=== PATIENT | female | born 1980 | race Hispanic/Latino ===

== ENCOUNTER → 2022-05-18 07:30 | Outpatient (CLI) | payer OTHER, SELFPAY ==
[2022-05-18 09:12] LABS: Glucose Fasting Gestational 82 mg/dL (76-95)
[2022-05-18 09:19] LABS: Glucose 1 Hour Gest 202 mg/dL (76-180)
[2022-05-18 11:00] LABS: Glucose Tol Interp,Gestational INTERPRETATION
[2022-05-18 11:12] LABS: Glucose 2 Hour Gest 124 mg/dL (76-155)
[2022-05-18 12:08] LABS: Glucose 3 Hour Gest 74 mg/dL (76-140)
== END ==
PROVIDERS: Referring Provider Nurse Practitioner Obstetrics & Gynecology; Visit Provider Nurse Practitioner Obstetrics & Gynecology
DX: Z34.90 Encounter for supervision of normal pregnancy, unspecified, unspecified trimester (principal); Z3A.26 26 weeks gestation of pregnancy
CPT/HCPCS: 36415; 82951; 82952

== ENCOUNTER 2022-07-28 11:06 | Outpatient (CLI) | payer OTHER, SELFPAY ==
[2022-07-28 12:24] LABS: Add Manual Diff / Slide Review NO; Basophils Absolute Auto 100 /uL (0-100); Basophils Percent Auto 1.2 % (0-2); Eosinophils Absolute Auto 100 /uL (0-450); Eosinophils Percent Auto 1.8 % (2-4); Hematocrit 33.2 % (36-46); Hemoglobin 11.5 g/dL (12.0-16.0); Lymphocytes Absolute Auto 1800 /uL (1100-4500); Lymphocytes Percent Auto 24.2 % (25-40); Mean Corpuscular HGB Conc 34.7 % (30-36); Mean Corpuscular Hemoglobin 31.6 PG (26-34); Mean Corpuscular Volume 91.1 fL (80-100); Monocytes Absolute Auto 500 /uL (0-900); Monocytes Percent Auto 6.5 % (3-14); Neutrophils Absolute Auto 4900 /uL (1500-7000); Neutrophils Percent Auto 66.3 % (50-75); Platelet Count 294 X10^3/uL (150-400); Red Blood Cell Count 3.65 X10^6/uL (4.0-5.2); Red Cell Distribution Width 13.4 % (11.6-14.8); White Blood Cell Count 7.5 X10^3/uL (4.5-11.0)
--- NOTE | 2022-07-28 12:42 | P.TNLD_ITS ---
Visit Information Visit Information Date of evaluation: 07/28/22 Primary OB Provider: May Mcdonald On-call OB Provider: May Mcdonald Reason for Evaluation: Yes other Comments/Additional reasons for admission: Fetus in variable position (transverse in clinic, breech now). Consultation with Dr. Noel for ECV including r/b/a of doing it now or waiting for either baby to turn, labor, or [address] Noel does not recommend IOL at this time due to EGA under 39w0d. Vital Signs Vital Signs: BP 115/73 HR 86 T 36.9 PFSH Medical History (Updated 07/28/22 @ 12:59 by Merissa Mccall, CNM, TRAINING DEVELOPMENT SPECIALIST) Supervision of high risk in third trimester Review of Systems Review of Systems Narrative: Negative. Exam Presentation: full/complete breech Objective Labs 07/28/22 12:10 Labs: Laboratory Results - last 24 hr 07/28/22 12:10 WBC 7.5 RBC 3.65 L Hgb 11.5 L Hct 33.2 L MCV 91.1 MCH 31.6 MCHC 34.7 RDW 13.4 Plt Count 294 Neut % (Auto) 66.3 Lymph % (Auto) 24.2 L [facility] % (Auto) 6.5 Eos % (Auto) 1.8 L Baso % (Auto) 1.2 Neut # (Auto) 4900 Lymph # (Auto) 1800 [facility] # (Auto) 500 Eos # (Auto) 100 Baso # (Auto) 100 Evaluation Evaluation Baseline heart rate: 135 Variability: Moderate (11-25) monitor accelerations: Present Monitor Decelerations: Absent Category of Tracing: Reactive Comments: irregular and painless contractions Diagnosis, Plan/Disposition Final Diagnosis (1) Supervision of high risk in third trimester: Status: Inactive Problem details: AMA - age 42 (2) Uncertain presentation of fetus: Status: Acute Problem details: position variable Plan/Disposition Plan: Consult with Dr. Noel. Laurence opts to NOT do ECV today. Offered IOL at 39w0d; Laurence declines at this time, will consider and keep IOL for 39w5d on 08/07/22 as scheduled. Review warning signs for labor and when to come in for exam. RTC Wednesday for PNV, JOSEPHINE, NST.
== END 2022-07-28 12:50 | disposition home or self-care (01) ==
LOC: LABOR 11:19 → OB 07-31 15:22
PROVIDERS: Referring Provider Nurse Practitioner Obstetrics & Gynecology; Visit Provider Nurse Practitioner Obstetrics & Gynecology
DX: O32.1XX0 Maternal care for breech presentation, not applicable or unspecified (principal); O09.523 Supervision of elderly multigravida, third trimester; Z3A.38 38 weeks gestation of pregnancy
CPT/HCPCS: 36415; 59025; 85025; 86850; 86900; 86901; G0378; G0379

== ENCOUNTER 2022-08-04 12:08 | Inpatient (IN) | payer OTHER, SELFPAY ==
[2022-08-04 12:45] VITALS: BP 114/72
--- NOTE | 2022-08-04 12:56 | PM.OBHP.1 ---
OB HPI Date/Time Date of admission: 08/04/22 Date Patient Seen: 08/04/22 Time Patient Seen: 12:30 History of Present Condition Chief complaint: Induction : 6 Para: 5 Estimated Date of Delivery: 08/09/22 Estimated Gestational Age (weeks): 39w2d Narrative: Laurence Parkinson is a 42 year old female at 39w2d by sure LMP 11/02/21 an concordant with 8 week US, here for IOL for AMA. Laurence was in clinic this morning for routine testing with non-reactive NST, JOSEPHINE WNL, baby was vertex on US. Has been struggling with unstable lie and is agreeable to induction today, rather than 08/07/22 which was previous request. On metformin 500mg PO BID prior to for pre-diabetes and has continued throughout with no change in dosing. Desires low intervention . FOB and her parents supportive and at bedside. Uncomplicated care and routine testing with CNMs. Diagnosed with UTI last week, Cephalexin prescribed and symptoms have subsided. Indications Indication for induction OB: other (AMA) History of Present care: good care, initiated at week # (8), number of visits (15) and pounds weight gain (29.4) Dating criteria: LMP confirmed by 1st trimester US Ultrasounds: normal 1st trimester US, normal mid trimester US and other (Baby unstable lie, multiple US to check positioning) Abnormal ultrasound findings: Breech position at 36w, transverse at 38w Preadmission Labs Blood type: O (+) positive -: Antibody screen: negative, Cystic fibrosis screen: negative, GBS status: negative, HBsAG: negative, HIV: negative and RPR/VDLR: negative -: Chlamydia screen: not detected and Gonorrhea screen: not detected -: Rubella: immune and Varicella: immune HCT: 33.8 PAP: Normal Cell-free DNA: Negative Urine: Escherichia coli detected on 08/02/22 3 hr GTT: 3 hr (82/202/124/74) Prior (ies) History: NSVB x5, no complications Evaluation Evaluation Baseline heart rate: 165 Variability: Moderate (11-25) monitor accelerations: Present Monitor Decelerations: Absent Uterine Contraction Intensity: Mild Category of Tracing: Reactive Status: Category ll Dilation (cm): 3 Effacement (%): 50 Dilation: 3-4 cm Effacement: 40-50% station: -2 Position of cervix: posterior Consistency: medium White score: 5 PFSH Medical History Supervision of high risk in third trimester Thyroid dysfunction, Social History marital status: unmarried,single household members: children lives independently: Yes housing: house occupational status: employed current occupational exposures/hazards: No Smoking Status: Former smoker Meds Home Medications and Allergies Home Medications Medication Instructions Recorded Confirmed Type cephalexin 500 mg capsule mg 08/04/22 History metformin 500 mg tablet mg 08/04/22 08/04/22 History Review of Systems Review of Systems ROS: Yes All systems reviewed with the patient and are negative except as otherwise documented Constitutional Constitutional: Reports as per HPI OB Exam Vital signs Blood Pressure: 114/72 Pulse Rate: 98 Temperature: 98.1 F Resp Effort & Inspection: normal respiratory effort and able to speak in complete sentences Auscultation: clear to auscultation bilaterally Cardio Rate: regular rate Rhythm: regular rhythm Presentation: vertex Objective Labs 08/04/22 12:45 Assessment and Plan Assessment and Plan Assessment and Plan narrative: A: Term Grandmultipara IOL for AMA Mild anemia No indication for GBS prophylaxis Recent UTI- on antibiotics Hx of thyroid failure Cat II FHR for tachycardia P: Admit, routine orders with thyroid labs added. Informed consent obtained for IOL for AMA. 250mL IV fluid bolus, then begin pitocin per protocol. Continuous EFM. Continue cephalexin PO, as previously prescribed. Active management of the third stage of labor. Reassess once regular contraction pattern is established.
[2022-08-04 13:24] VITALS: BP 114/72; PULSE 98; TEMP 36.7
[2022-08-04 13:26] LABS: Add Manual Diff / Slide Review NO; Basophils Absolute Auto 100 /uL (0-100); Basophils Percent Auto 0.9 % (0-2); Eosinophils Absolute Auto 200 /uL (0-450); Eosinophils Percent Auto 2.4 % (2-4); Hemoglobin 11.3 g/dL (12.0-16.0); Lymphocytes Absolute Auto 1800 /uL (1100-4500); Lymphocytes Percent Auto 28.8 % (25-40); Mean Corpuscular HGB Conc 34.2 % (30-36); Mean Corpuscular Hemoglobin 31.2 PG (26-34); Mean Corpuscular Volume 91.2 fL (80-100); Monocytes Absolute Auto 400 /uL (0-900); Monocytes Percent Auto 5.9 % (3-14); Neutrophils Absolute Auto 3800 /uL (1500-7000); Platelet Count 258 X10^3/uL (150-400); Red Blood Cell Count 3.62 X10^6/uL (4.0-5.2); Red Cell Distribution Width 13.7 % (11.6-14.8); White Blood Cell Count 6.2 X10^3/uL (4.5-11.0)
[2022-08-04] MEDS: OXYTOCIN PREMIX 30 UNIT/500 ML PLAST..BAG IV (13:32)
[2022-08-04 14:01] LABS: Free T4, Direct Thyroxine 0.76 ng/dL (0.78-2.19)
[2022-08-04 14:14] LABS: Thyroid Stimulating Hormone 2.27 uIU/mL (0.47-4.68)
--- NOTE | 2022-08-04 16:16 | PM.OBPNLAB ---
Date/Time Date Patient Seen: 08/04/22 Time Patient Seen: 16:10 Pain Control Pain control: tolerating well Comments: Now closing her eyes and breathing through regular contractions. Agreeable to AROM. Lots of family present and supportive. VS: BP 133/80, HR 90bpm, T 36.6C Temporal Pelvic Exam Dilation (cm): 5 Effacement (%): 60 station: -3 Amniotic membrane status: Bulging Comments: AROM with FSE. FSE applied to membranes and NOT scalp, then removed. Scant clear fluid noted. Contractions Monitor mode: External Pitocin rate (mU/min): 8 Contraction frequency (min): 3 Contraction duration (min): 1 Contraction pattern: Regular Contraction intensity: Mild Status status: Category ll (overall reassuring) Heart Rate Baseline: 135 Monitor Accelerations: Present Monitor Decelerations: Variable Monitor Variability: Moderate Assessment and Plan Assessment: induction ongoing Plan: continuous present management Comments: Consulted [facility] OB/ prior to needle AROM and she was in agreement with plan of care. Upright positioning for the next 30 minutes. Monitor for continued leaking of fluid. Labor support, PRN. Continue pitocin titration to adequate contraction pattern. Labor support PRN. Reassess in 2 hours or sooner, PRN.
[2022-08-04] MEDS: CEPHALEXIN 500 MG 1 EACH PO (17:05)
--- NOTE | 2022-08-04 23:06 | P.PCNOB_ITS ---
Events: Labor Induction and Other (Advanced Maternal Age) Labor & Delivery Delivery date: 08/04/22 Intrapartal Events: Abnormal Presentation ( & acynclitic) Cervical ripening method: none Induction method: per pitocin protocol Delivery monitor: external FHT Route of delivery: L&D Laceration Description: None Quantitative Blood Loss: 150 Anesthesia Type: Other (NO2) Narrative: Laurence is a 42yr old G6 now P6 s/p NSVB at 39w2d by sure LMP and concordant 8wk US. Pitocin induction for IOL d/t AMA and non-reactive NST in office this morning. AROM with clear fluid. Contractions managed well with comfort measures, position changes, lots of support from family, and NO2. She felt like bearing down, SVE 8/80/0, with edema anterior and right. FHR Cat II, first with recurrent variables, and later deep recurrent decelerations that were unrelieved by positions changes. Encouraged to push due to non-reassuring HR. Another SVE found cervical swelling so Laurence was coached to stop pushing and encouraged to get out of bed and stand and sway with the support of FOB, father, and brother. She returned to lithotomy, CNM was able to reduce anterior lip. Third push resulted in delivery of entire head and body of vigorous baby girl, SAIDA, no nuchal cord over intact perineum. Terminal meconium noted. Placed on maternal abdomen by her father. Cord clamped after pulsations stopped, cut by FOB. Pitocin given per protocol for hemorrhage prophylaxis. Baby girl voided while on maternal abdomen. Placenta delivered within 10min, Schultze, 3V, intact per inspection. Fundus firm @ U. QBL 150mL. Stable and skin to skin as we were leaving room. Entire family so excited to meet baby Cortney. weight not available at the time of this note. [place] Baby 1: Infant gender: Female Presentation: vertex Position: Left Occiput Anterior Placenta delivery description: Spontaneous and Normal Configuration Cord Vessel Description: 3 Vessels score (1 min): 8 score (5 min): 9 Plan for aftercare: Routine care
[2022-08-04] MEDS: KETOROLAC 30 MG/ML VIAL IV (23:47)
--- NOTE | 2022-08-05 00:17 | PM.NBHP.1 ---
History History Time of : 22:22 Gestation: term Multiple fetuses: No Mode of delivery: vaginal score (1 min): 8 score (5 min): 9 Nursery Course Maternal RH factor: positive Exam - Pediatric Vital Signs Vital Signs: Vital Signs BP 114/72 08/04/22 12:45 Objective Labs 08/04/22 12:45 Labs: Laboratory Results - last 24 hr 08/04/22 08/04/22 08/04/22 12:45 12:45 12:45 WBC 6.2 RBC 3.62 L Hgb 11.3 L Hct 33.0 L MCV 91.2 MCH 31.2 MCHC 34.2 RDW 13.7 Plt Count 258 Neut % (Auto) 62.0 Lymph % (Auto) 28.8 [facility] % (Auto) 5.9 Eos % (Auto) 2.4 Baso % (Auto) 0.9 Neut # (Auto) 3800 Lymph # (Auto) 1800 [facility] # (Auto) 400 Eos # (Auto) 200 Baso # (Auto) 100 TSH 2.27 Free T4 0.76 L Blood Type O Positive Antibody Screen Negative Sarnat Scoring Scale Citation Madeline HB, Shakir L, Damon C, Marjorie LM, Praful C, Kateryna K. Sarnat grading scale for encephalopathy after 45 years: an update proposal. Pediatr Neurol. 2020;113:75?9.
[2022-08-05] MEDS: ACETAMINOPHEN 325 MG TABLET 975 MG PO ×3 (01:34→17:42)
[2022-08-05] MEDS: CEPHALEXIN 500 MG 1 EACH PO (01:35)
[2022-08-05] MEDS: IBUPROFEN 600 MG TABLET PO ×2 (06:51→13:18)
[2022-08-05] MEDS: cephALEXin 250 MG CAPSULE 500 MG PO ×2 (09:36→15:29)
--- NOTE | 2022-08-05 12:30 | P.DS_ITS ---
Discharge Providers Provider Date of admission: 08/04/22 12:08 Discharge Date: 08/05/22 Consults: 08/05/22 22:55 Consult to Workers Compensation Claims Adjuster Routine Comment: Discharge provider: Merissa Mccall CNM, ARNP Summary Hospital Course Date Patient Seen: 08/05/22 Time Patient Seen: 11:15 Diagnoses: Z3A.39, o09.529, o09.40, o8o, o99.214 NSVB AMA Hospital Course: Laurence is a 42 year old who had an IOL/NSVB yesterday at 39w2d for AMA and NRNST. QBL 150 mL. Intact perineum. Normal course. Pain managed with ibuprofen and acetaminophen. Has voided normally and passed gas. She is well hydrated and eating normally. with no concerns. Normal mood, but feeling very tired. Well supported by Didier PALMER. Peripartum Data Infant Delivery Method: Natural Vaginal Laceration Description: None Procedures: NSVB 1: Gender: Female Disposition of : home Discharge Diagnosis (1) (normal spontaneous vaginal delivery): Start Date: 08/04/22 Start Time: 22:22 Status: Acute Problem Details: no complications, normal blood loss, intact perineum (2) Encounter for care and examination of lactating mother: Start Date: 08/04/22 Start Time: 22:22 Status: Acute Problem Details: going well Status at Discharge Cognitive/behavioral status at discharge: at baseline, oriented Functional status at discharge: independent ambulation Overall status at discharge: patient is progressing back to baseline Time Spent with Patient Time attestation: Total time spent providing and/or coordinating discharge services: 45 Specific discharge activities: Reviewed normal mood, bleeding, recovery, pain and warning signs, when to call ROGELIO. Objective Labs 08/04/22 12:45 Labs: Laboratory Results - last 24 hr 08/04/22 08/04/22 08/04/22 12:45 12:45 12:45 WBC 6.2 RBC 3.62 L Hgb 11.3 L Hct 33.0 L MCV 91.2 MCH 31.2 MCHC 34.2 RDW 13.7 Plt Count 258 Neut % (Auto) 62.0 Lymph % (Auto) 28.8 Power % (Auto) 5.9 Eos % (Auto) 2.4 Baso % (Auto) 0.9 Neut # (Auto) 3800 Lymph # (Auto) 1800 Power # (Auto) 400 Eos # (Auto) 200 Baso # (Auto) 100 TSH 2.27 Free T4 0.76 L Blood Type O Positive Antibody Screen Negative Exam Vital Signs (past 8 hours): BP 108/57 HR 83 bpm RR 13/min Temp: 98.4 Const General: healthy appearing, comfortable and other (sore) Other: Fundus Firm U-2 Skin General: no rashes or lesions noted Neuro General: patient oriented x3 Extrem General: normal to inspection, full ROM and capillary refill normal Psych Appearance: grossly normal Discharge Plan Discharge Plan Patient Disposition: Home Provider Discharge Comment: Home with baby; has good support from FOB and family. Discharge orders & Medications Prescriptions: Continued cephalexin 500 mg capsule metformin 500 mg tablet Patient Comments: take 1 tablet by mouth three times a day Follow up/Referrals: Merissa Mccall, ROGELIO, PILOT FUEL ENGINEER [Advanced Respiratory Coordinator] - Diet/Activity/Treatments Diet: Regular Activity: Low diaz x 2 weeks Skin/Wound/Dressing Care Report to your healthcare provider any signs of infection, such as:: chills, fever, increased pain, unusual drainage and unusual redness Visit Report/Discharge Packet Stand Alone Forms: Patient Portal/API, Stroke Signs & Symptoms
[2022-08-05 16:52] VITALS: BP 115/69; PULSE 71; RESP 16; TEMP 36.8
== END 2022-08-05 18:33 | disposition home or self-care (01) | DRG 806 ==
PROVIDERS: Admitting Provider Nurse Practitioner Obstetrics & Gynecology; Referring Provider Nurse Practitioner Obstetrics & Gynecology; Visit Provider Nurse Practitioner Obstetrics & Gynecology
DX: O75.3 Other infection during labor (principal); N39.0 Urinary tract infection, site not specified; Z37.0 Single live birth; B96.89 Other specified bacterial agents as the cause of diseases classified elsewhere; Z3A.39 39 weeks gestation of pregnancy; O99.892 Other specified diseases and conditions complicating childbirth; R73.03 Prediabetes; O76 Abnormality in fetal heart rate and rhythm complicating labor and delivery; O99.02 Anemia complicating childbirth; D64.9 Anemia, unspecified; Z79.84 Long term (current) use of oral hypoglycemic drugs
CPT/HCPCS: 36415; 59050; 76815; 84439; 84443; 85025; 86850; 86900; 86901; G0379; J1885; J2590

== ENCOUNTER → 2022-08-18 09:55 | Outpatient (CLI) | payer OTHER, SELFPAY ==
[2022-08-18 10:55] LABS: Free T4, Direct Thyroxine 0.92 ng/dL (0.78-2.19)
[2022-08-18 11:08] LABS: Thyroid Stimulating Hormone 1.27 uIU/mL (0.47-4.68)
== END ==
PROVIDERS: Referring Provider Nurse Practitioner Obstetrics & Gynecology; Visit Provider Nurse Practitioner Obstetrics & Gynecology
DX: E03.9 Hypothyroidism, unspecified (principal)
CPT/HCPCS: 36415; 84439; 84443

== ENCOUNTER → 2023-02-26 11:18 | Outpatient (CLI) | payer OTHER, SELFPAY ==
--- NOTE | 2023-02-26 | DI.US.S_ITS ---
PROCEDURE: US OB <= 14 WEEKS FETUS INDICATIONS: SIZE AND DATE OUTSIDE/PRIOR DATING DATA: Last menstrual period (LMP): Mm. LMP-based estimated date of delivery (CHRIS): Unknown. First dating scan (date and location): 02/26/2023 Estimated date of delivery (CHRIS) from first dating scan: 09/30/2023. The calculations are made using the ultrasound CHRIS of 09/30/2023. TECHNIQUE: Real-time scanning was performed of the fetus and maternal pelvic organs, with image documentation. Endovaginal scanning was also performed to better visualize the fetus and maternal ovaries. COMPARISON: None. FINDINGS: Embryo: pole with crown-rump length of 2.5 centimeters, consistent with 9 weeks and 1 day. Yolk sac is present. Heart rate: 175 Subchronic hemorrhage measuring 0.7 x 0.5 x 0.4 centimeters. Maternal organs: Ovaries are within normal limits. Right ovarian corpus luteal cyst is present. IMPRESSION: 1. Single live intrauterine consistent with 9 weeks and 1 day. 2. Small subchorionic hemorrhage measuring up to 7 millimeters. We strive to produce accurate, complete, and clear reports of imaging services. To assist us in improving patient care, this report was composed using standard report templates and voice recognition software. Therefore, it may contain abnormal punctuation, insertions and/or omissions. Occasional wrong-word or sound-alike substitutions may occur. Though we review the report and make efforts to correct it, we do recommend that the report be read carefully in proper context to recognize any text inaccuracies. Dictated by: Dwayne White M.D. on 02/26/2023 at 11:54 Approved by: Dwayne White M.D. on 02/26/2023 at 11:57
== END ==
PROVIDERS: Referring Provider Advanced Practice Midwife; Visit Provider Advanced Practice Midwife
DX: O09.41 Supervision of pregnancy with grand multiparity, first trimester (principal)
CPT/HCPCS: 76801; 76817

== ENCOUNTER → 2023-05-20 15:42 | Outpatient (CLI) | payer OTHER, SELFPAY ==
--- NOTE | 2023-05-20 | DI.US.S_ITS ---
PROCEDURE: US OB >= 14 WEEKS FETUS INDICATIONS: ANATOMY SCAN OUTSIDE/PRIOR DATING DATA: Last menstrual period (LMP): Unknown. LMP-based estimated date of delivery (CHRIS): Not available. First dating scan (date and location): February 26, 2023. Estimated date of delivery (CHRIS) from first dating scan: September 30, 2023. TECHNIQUE: Real-time scanning was performed of the fetus, with image documentation and biometric measurements. Endovaginal scanning: Not performed COMPARISON: None. FINDINGS: General: A single living intrauterine gestation is present. Presentation: Variable. Placenta: Placental position is posterior , without previa. Amniotic fluid index: 16.6 cm, normal range is 5-24 cm. Single deepest vertical pocket is 5.5 cm. heart rate: 153 beats per minute. Maternal cervical canal: 4.4 cm long. Normal lower limit is 2.5 cm. biometrics: Biparietal diameter: 4.8 cm, 20 weeks, 3 days Head circumference: 17.8 cm, 20 weeks, 2 days Abdominal circumference: 16.2 cm, 21 weeks, 2 days Femur length: 3.5 cm, 21 weeks, 1 day Clinically estimated gestational age: 21 weeks, 0 days Composite gestational age from present scan: 20 weeks, 6 days Estimated weight and percentile: 398 g, 49% Anatomic survey: Neuro: Ventricles are non-dilated at less than 10 mm. Cisterna magna is normal at 3-11 mm. Cerebellum is normal in size and morphology. Nuchal skin fold: Normal at less than 6 mm between 14-21 weeks gestational age. Face: Nose and lips, facial profile are normal. Spine: No evidence for spina bifida. Heart: 4-chambered heart is present, with normal ventricular outflow tracts. Diaphragm: Diaphragm is intact. Stomach: Left-sided stomach is present. Kidneys: No hydronephrosis. Normal is less than 5 mm in 2nd trimester, less than 7 mm in 3rd trimester. Cord: 3-vessel cord has orthotopic insertion. Bladder: Normal in size. Extremities: All 4 extremities identified. IMPRESSION: 1. Single live intrauterine gestation with a gestational age of 20 weeks, 6 days by the current scan which is concordant with dates by initial study. 2. No sonographic anatomic abnormalities. We strive to produce accurate, complete, and clear reports of imaging services. To assist us in improving patient care, this report was composed using standard report templates and voice recognition software. Therefore, it may contain abnormal punctuation, insertions and/or omissions. Occasional wrong-word or sound-alike substitutions may occur. Though we review the report and make efforts to correct it, we do recommend that the report be read carefully in proper context to recognize any text inaccuracies. Dictated by: Jo-Ann Lewis M.D. on 05/21/2023 at 9:08 Approved by: Jo-Ann Lewis M.D. on 05/21/2023 at 9:11
== END ==
LOC: US 15:43
PROVIDERS: Referring Provider Advanced Practice Midwife; Visit Provider Advanced Practice Midwife
DX: Z3A.20 20 weeks gestation of pregnancy; Z34.82 Encounter for supervision of other normal pregnancy, second trimester
CPT/HCPCS: 76811

== ENCOUNTER → 2023-07-07 22:38 | Outpatient (ROUT) | payer OTHER, SELFPAY ==
[2023-07-07 23:38] LABS: Add Manual Diff / Slide Review NO; Basophils Absolute Auto 100 /uL (0-100); Basophils Percent Auto 0.9 % (0-2); Eosinophils Absolute Auto 300 /uL (0-450); Eosinophils Percent Auto 3.6 % (2-4); Hematocrit 33.4 % (36-46); Hemoglobin 11.1 g/dL (12.0-16.0); Lymphocytes Absolute Auto 1700 /uL (1100-4500); Lymphocytes Percent Auto 21.5 % (25-40); Mean Corpuscular HGB Conc 33.2 % (30-36); Mean Corpuscular Hemoglobin 31.8 PG (26-34); Mean Corpuscular Volume 95.8 fL (80-100); Monocytes Absolute Auto 200 /uL (0-900); Monocytes Percent Auto 2.9 % (3-14); Neutrophils Absolute Auto 5700 /uL (1500-7000); Neutrophils Percent Auto 71.1 % (50-75); Platelet Count 347 X10^3/uL (150-400); Red Blood Cell Count 3.49 X10^6/uL (4.0-5.2); Red Cell Distribution Width 14.9 % (11.6-14.8)
[2023-07-08 00:44] LABS: Free T4, Direct Thyroxine 1.03 ng/dL (0.78-2.19)
== END ==
PROVIDERS: Visit Provider Advanced Practice Midwife
DX: O99.019 Anemia complicating pregnancy, unspecified trimester (principal); E03.9 Hypothyroidism, unspecified
CPT/HCPCS: 84439; 84443; 85025

== ENCOUNTER → 2023-08-26 16:44 | Outpatient (CLI) | payer OTHER, SELFPAY ==
--- NOTE | 2023-08-26 16:45 | DI.US.S_ITS ---
PROCEDURE: US OB LIMITED INDICATIONS: GROWTH OUTSIDE/PRIOR DATING DATA: Last menstrual period (LMP): Unknown LMP-based estimated date of delivery (CHRIS): N/A First dating scan (date and location): 02/26/2023 Estimated date of delivery (CHRIS) from first dating scan: 09/30/2023 The calculations are made using the ultrasound CHRIS of 09/30/2023 TECHNIQUE: Real-time scanning was performed of the fetus, with image documentation and biometric measurements. Endovaginal scanning: Not performed. COMPARISON: [facility], , OB >= 14 WEEKS FETUS, 05/20/2023, 15:58. FINDINGS: General: A single living intrauterine gestation is present. Presentation: Breech Placenta: Placental position is posterior, without previa. Amniotic fluid index: 29 cm, normal range is 5-24 cm. Single deepest vertical pocket is 9.3 cm. heart rate: 152 beats per minute. Maternal cervical canal: 3.5 cm long. Normal lower limit is 2.5 cm. biometrics: Biparietal diameter: 8.6 cm, 34 weeks 4 days Head circumference: 32.9 cm, 37 weeks 2 days Abdominal circumference: 33.9 cm, 37 weeks 6 days Femur length: 6.9 cm, 35 weeks 1 day Clinically estimated gestational age: 35 weeks 0 days Composite gestational age from present scan: 36 weeks 2 days Estimated weight and percentile: 3026 g, 90th percentile Other: Not applicable. IMPRESSION: 1. Single live intrauterine . 2. Estimated weight is at the 90th percentile for gestational age. Abdominal circumference is at the 99th percentile. 3. Amniotic fluid index is elevated at 29 cm. Recommend correlation for developing polyhydramnios. Approved by: Dillan Wahl M.D. on 08/27/2023 at 11:17
== END ==
PROVIDERS: Referring Provider Advanced Practice Midwife; Visit Provider Advanced Practice Midwife
DX: O09.523 Supervision of elderly multigravida, third trimester (principal); O09.43 Supervision of pregnancy with grand multiparity, third trimester; Z3A.36 36 weeks gestation of pregnancy
CPT/HCPCS: 76815

== ENCOUNTER → 2023-09-09 06:40 | Outpatient (CLI) | payer OTHER, SELFPAY ==
--- NOTE | 2023-09-09 06:42 | DI.US.S_ITS ---
PROCEDURE: US OB BIOPHYSICAL PROFILE INDICATIONS: POLYHYDRAMNIOS OUTSIDE/PRIOR DATING DATA: Last menstrual period (LMP): Unknown. LMP-based estimated date of delivery (CHRIS): Unknown First dating scan (date and location): 02/26/2023. Estimated date of delivery (CHRIS) from first dating scan: 09/30/2023. The calculations are made using the ultrasound CHRIS of 09/30/2023. TECHNIQUE: Real-time scanning was performed of the fetus, with image documentation and biometric measurements. Biophysical profile was also obtained. COMPARISON: [facility], , OB LIMITED, 08/26/2023, 17:01. FINDINGS: General: A single living intrauterine gestation is present. Presentation: Breech. Placenta: Placental position is posterior , without previa. Amniotic fluid index: 31.2 cm, normal range is 5-24 cm. Single deepest vertical pocket is 10.4 cm. heart rate: 127 beats per minute. Maternal cervical canal: Not assessed. biometrics: Clinically estimated gestational age: 37 weeks 0 days Biophysical profile: Tone: 2 points. Movement: 2 points. Respiration: 2 points. Largest pocket of fluid: 2 points. IMPRESSION: Single live intrauterine with gestational age of 37 weeks 0 days. JOSEPHINE measures 31.2 cm consistent with polyhydramnios. Close interval follow-up is recommended. We strive to produce accurate, complete, and clear reports of imaging services. To assist us in improving patient care, this report was composed using standard report templates and voice recognition software. Therefore, it may contain abnormal punctuation, insertions and/or omissions. Occasional wrong-word or sound-alike substitutions may occur. Though we review the report and make efforts to correct it, we do recommend that the report be read carefully in proper context to recognize any text inaccuracies. Dictated by: Halle Rodriguez M.D. on 09/09/2023 at 12:05 Approved by: Halle Rodriguez M.D. on 09/09/2023 at 12:06
== END ==
PROVIDERS: Referring Provider Advanced Practice Midwife; Visit Provider Advanced Practice Midwife
DX: O40.3XX0 Polyhydramnios, third trimester, not applicable or unspecified (principal); Z3A.37 37 weeks gestation of pregnancy
CPT/HCPCS: 76819

== ENCOUNTER 2023-09-09 07:13 | Outpatient (CLI) | payer OTHER, SELFPAY ==
[2023-09-09 09:06] LABS: Strep Grp B PCR NEG for Grp B Strep
--- NOTE | 2023-09-09 12:05 | PM.PROC.1 ---
Procedures Date/Time Date of procedure: 09/09/23 Time of procedure: 07:22 General Procedure description: NST: Patient here for scheduled NST for AMA and polyhydramnios Baseline:135 bpm Variability: moderate Accelerations: present Decelerations: none Impression: Reactive NST Plan: follow up with provider as scheduled
== END 2023-09-09 08:03 | disposition home or self-care (01) ==
LOC: LABOR 07:17 → OB 09-13 15:03
PROVIDERS: Referring Provider Advanced Practice Midwife; Visit Provider Advanced Practice Midwife
DX: O09.523 Supervision of elderly multigravida, third trimester (principal); Z3A.37 37 weeks gestation of pregnancy; O40.3XX0 Polyhydramnios, third trimester, not applicable or unspecified
CPT/HCPCS: 59025; 76819; 87081; 87653; G0378; G0379

== ENCOUNTER 2023-09-11 22:36 | Observation (INO) | payer OTHER, SELFPAY ==
--- NOTE | 2023-09-11 23:19 | PM.OBTRLD ---
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 Back is killing her - rating her pain 6/10 with movement - and has not been feeling the baby move well today. Looks and feels larger than she ever has due to polyhydramnios. Reassured to feel baby's activity during NST. Stefanie is tired. Vital Signs Vital Signs: BP 112/66 HR 98 bpm Temp 36.4 C SpO2 96% PFSH Medical History Encounter for care and examination of lactating mother (normal spontaneous vaginal delivery) Thyroid dysfunction, Supervision of high risk in third trimester Social History (Updated 09/11/23 @ 23:24 by Merissa Mccall CNM, [employer]) marital status: unmarried,single details: lives with partner and their children number of children: 6 household members: children lives independently: Yes housing: house occupational status: employed current occupational exposures/hazards: No Smoking Status: Former smoker Evaluation Evaluation Baseline heart rate: 135 Variability: Moderate (11-25) monitor accelerations: Present Monitor Decelerations: Absent Contraction Frequency (minutes): 12 Uterine Contraction Intensity: Mild Category of Tracing: Reactive Diagnosis, Plan/Disposition Final Diagnosis (1) Decreased movement during in third trimester, antepartum: Status: Acute Problem details: Reactive NST (2) Polyhydramnios affecting in third trimester: Status: Acute (3) Advanced maternal age (AMA), 40 years or greater: Status: Acute (4) Supervision of high-risk : Status: Acute Problem details: by early ultrasound (5) Uncertain presentation of fetus: Status: Acute Problem details: position variable Plan/Disposition Plan: Induction scheduled for 39w0d on 09/23/[address] Colbert aware and will be present for ECV PRN. Reactive NST. Strong recommendation for rest and hydration tomorrow. BPP and NST scheduled at on Wednesday. Call PRN.
[2023-09-12 20:44] LABS: Strep Grp B PCR NEG for Grp B Strep
== END 2023-09-11 23:44 | disposition home or self-care (01) ==
PROVIDERS: Admitting Provider Advanced Practice Midwife; Referring Provider Advanced Practice Midwife; Visit Provider Advanced Practice Midwife
DX: O36.8130 Decreased fetal movements, third trimester, not applicable or unspecified (principal); O40.3XX0 Polyhydramnios, third trimester, not applicable or unspecified; O09.523 Supervision of elderly multigravida, third trimester; Z3A.39 39 weeks gestation of pregnancy
CPT/HCPCS: 59025; 87653; G0378; G0379

== ENCOUNTER 2023-09-14 14:03 | Observation (INO) | payer OTHER, SELFPAY ==
--- NOTE | 2023-09-14 14:10 | DI.US.S_ITS ---
PROCEDURE: US OB BIOPHYSICAL PROFILE INDICATIONS: Polyhydramnios OUTSIDE/PRIOR DATING DATA: Last menstrual period (LMP): Unknown LMP-based estimated date of delivery (CHRIS): N/A First dating scan (date and location): 02/26/2023 Estimated date of delivery (CHRIS) from first dating scan: 09/30/2023 The calculations are made using the ultrasound CHRIS of 09/30/2023 TECHNIQUE: Real-time scanning was performed of the fetus, with image documentation. Biophysical profile was also obtained. Endovaginal scanning: Not performed COMPARISON: [facility], , OB BIOPHYSICAL PROFILE, 09/09/2023, 7:00. FINDINGS: General: A single living intrauterine gestation is present. Presentation: Vertex Placenta: Placental position is posterior, without previa. Amniotic fluid index: 22.8 cm, normal range is 5-24 cm. Single deepest vertical pocket is 7.7 cm. heart rate: 130 beats per minute. Maternal cervical canal: Not well visualized Clinically estimated gestational age: 37 weeks 5 days Biophysical profile: Tone: 2 points. Movement: 2 points. Respiration: 2 points. Largest pocket of fluid: 2 points. IMPRESSION: 1. Single live intrauterine at 37 weeks 5 days gestation. 2. Biophysical profile score is 8 of 8. 3. Amniotic fluid index is 22.8 cm. Correlate for polyhydramnios. Approved by: Dillan Wahl M.D. on 09/14/2023 at 15:51
--- NOTE | 2023-09-14 15:41 | P.TNLD_ITS ---
Visit Information Visit Information Date of evaluation: 09/14/23 Primary OB Provider: Merissa Mccall On-call OB Provider: Merissa Mccall Reason for Evaluation: Yes non-stress test Comments/Additional reasons for admission: Laurence came in today complaining of nausea, pressure, difficulty walking, some contractions. She is uncomfortable in every position, and not sleeping due to her discomfort. Declined anti-nausea medication when offered. Feels better with rest. [facility] Medical History Encounter for care and examination of lactating mother (normal spontaneous vaginal delivery) Thyroid dysfunction, Supervision of high risk in third trimester Social History marital status: unmarried,single details: lives with partner and their children number of children: 6 household members: children lives independently: Yes housing: house occupational status: employed current occupational exposures/hazards: No Smoking Status: Former smoker Review of Systems Review of Systems Narrative: All negative except as mentioned above. Exam Vital Signs (past 8 hours): BP 119/58 RR 87 bpm Temp: 36.2 C SpO2 95 Manual OB Exam: dilated (2.5), effaced 50%, station -1 and other (mid position, medium consistency) Presentation: vertex Objective Labs Labs: BPP 8/8 JOSEPHINE 22.8 cm Evaluation Evaluation Baseline heart rate: 130 Variability: Moderate (11-25) monitor accelerations: Present Monitor Decelerations: Absent Contraction Frequency (minutes): 10 (irregular) Uterine Contraction Intensity: Mild Category of Tracing: Reactive Cervical dilation (cm): 2.5 Cervical effacement (%): 50 station: -1 Diagnosis, Plan/Disposition Final Diagnosis (1) Advanced maternal age (AMA), 40 years or greater: Status: Acute Problem details: Normal JOSEPHINE today after polyhydramnios x 3 weeks (2) Supervision of high-risk : Status: Acute Problem details: by early ultrasound Plan/Disposition Plan: Discharge home with strong recommendation to rest more. Letter written to encourage half days of head screen worker. Reminder to take good care of self re: hydration, nourishment. IOL scheduled for 39w0d on 09/23/23.
== END 2023-09-14 16:35 | disposition home or self-care (01) ==
PROVIDERS: Admitting Provider Advanced Practice Midwife; Referring Provider Advanced Practice Midwife; Visit Provider Advanced Practice Midwife
DX: O47.1 False labor at or after 37 completed weeks of gestation (principal); O09.523 Supervision of elderly multigravida, third trimester; Z3A.37 37 weeks gestation of pregnancy
CPT/HCPCS: 59025; 59050; 76819; G0378; G0379

== ENCOUNTER 2023-09-22 19:22 | Inpatient (IN) | payer OTHER, SELFPAY ==
--- NOTE | 2023-09-22 20:13 | PM.OBHP.1 ---
OB HPI Date/Time Date of admission: 09/22/23 Date Patient Seen: 09/22/23 Time Patient Seen: 20:14 History of Present Condition Chief complaint: INDUCTION : 7 Para: 6 Estimated Date of Delivery: 09/30/23 Estimated Gestational Age (weeks): 38w6d Narrative: Laurence Parkinson is a 43 year old at 38w 6d by early ultrasound here tonight for IOL r/to AMA. Laurence has been cared for by CNMs, complications this include advanced maternal age (43 at CHRIS), grand multiparity, closely spaced pregnancies, large subchorionic hemorrhage in early , hypothyroid (takes levothyroxine), insulin resistance (takes Metformin BID), and polyhydramnios weeks [id number], resolved with 2 normal AFIs at 37w5d and 38w5d. Baby 90% with 99% AC at 35 week ultrasound. Fetus with unstable lie, has been vertex for the last two ultrasounds and this was confirmed on admission today. Frequent ultrasounds due to 35 week growth ultrasound and antepartum testing weekly since 36 weeks. Laurence desires low intervention . She is supported by Didier, and her dad and step-mom will come by later to support her in laboring and . Indications Indication for induction OB: other (AMA) History of Present care: good care, initiated at week # (9), number of visits (8) and pounds weight gain (24) Dating criteria: based on 1st trimester US only Ultrasounds: normal 1st trimester US (with the exception of subchorionic hemorrhage) and normal mid trimester US Obstetrical complications: none Medical complications: other (hypothyroid in ) Preadmission Labs Blood type: O (+) positive -: Antibody screen: negative, Cystic fibrosis screen: unknown, GBS status: negative, HBsAG: negative, HIV: negative, HSV 1: unknown, HSV 2: unknown and RPR/VDLR: negative -: Chlamydia screen: not detected and Gonorrhea screen: not detected -: Rubella: immune and Varicella: immune HCT: 33.4 HCAB: negative PAP: Normal (NIL and HPV neg 04/2021) Quad screen: Normal (MsAFP only - negative screen) Cell-free DNA: Negative, XX Urine: Negative UC at NOB. 1 hr GTT: 134 Narrative: HbA1c at NOB: 5.6 Prior (ies) History: 6 2000 - 2022 Evaluation Evaluation Baseline heart rate: 135 Variability: Moderate (11-25) monitor accelerations: Present Monitor Decelerations: Absent Contraction Frequency (minutes): 10 (q 5-15 min, irregular and painless) Uterine Contraction Intensity: Mild Category of Tracing: Reactive Dilation (cm): 3 Effacement (%): 75 Dilation: 3-4 cm Effacement: 60-70% station: -3 Position of cervix: mid Consistency: soft White score: 7 [facility] Medical History (Updated 09/22/23 @ 21:03 by Merissa Mccall CNM, [employer]) Hypothyroidism affecting in first trimester Polyhydramnios affecting in third trimester Uncertain presentation of fetus Encounter for care and examination of lactating mother (normal spontaneous vaginal delivery) Thyroid dysfunction, Supervision of high risk in third trimester Social History marital status: unmarried,single details: lives with partner and their children number of children: 6 household members: children lives independently: Yes housing: house occupational status: employed current occupational exposures/hazards: No Smoking Status: Former smoker Meds Home Medications and Allergies Home Medications Medication Instructions Recorded Confirmed Type metformin 500 mg tablet 500 mg BID 08/04/22 09/22/23 History levothyroxine 150 mcg tablet 150 mcg PO DAILY 09/22/23 09/22/23 History Allergies Allergy/AdvReac Type Severity Reaction Status Date / Time No Known Drug Allergies Allergy Verified 08/04/22 14:55 Review of Systems Review of Systems Narrative: All negative except as mentioned in HPI. OB Exam Vital signs Blood Pressure: 94/52 Pulse Rate: 78 Respiratory Rate: 16 Temperature: 97.5 F HENMT Head: normal to inspection and normocephalic Resp Effort & Inspection: normal respiratory effort and able to speak in complete sentences Cardio Rate: regular rate Rhythm: regular rhythm Extremities Lower extremity: Yes normal to inspection GI Inspection: normal to inspection (gravid uterus) Presentation: vertex (confirmed by bedside ultrasound at admission) Estimated Weight (lbs): 8 Amniotic Fluid: other (membranes intact) Objective Labs 09/22/23 20:10 Assessment and Plan Assessment and Plan Assessment and Plan narrative: at 38w6d by 1st trimester ultrasound Advanced Maternal Age (43 yo) GBS negative Rh positive Hypothyroidism in Polyhydramnios resolved at 35w5d History of unstable lie; confirmed vertex on admission FHR - reactive NST on admission Admit to L&D with usual admission procedures and labs. Bedside ultrasound to confirm presentation. Review options for induction including pitocin and AROM. At first plan for AROM, but changed plan due to ballotable baby. Continuous monitoring due to pitocin induction. Plan for AROM and pitocin reduction at that time once baby is lower in pelvis. Recommend position changes to ensure good labor. Anticipate NSVB.
[2023-09-22 20:32] LABS: Add Manual Diff / Slide Review NO; Basophils Absolute Auto 100 /uL (0-100); Basophils Percent Auto 1.3 % (0-2); Eosinophils Absolute Auto 200 /uL (0-450); Eosinophils Percent Auto 2.9 % (2-4); Hematocrit 33.1 % (36-46); Hemoglobin 11.4 g/dL (12.0-16.0); Lymphocytes Absolute Auto 1800 /uL (1100-4500); Lymphocytes Percent Auto 24.2 % (25-40); Mean Corpuscular HGB Conc 34.3 % (30-36); Mean Corpuscular Hemoglobin 31.4 PG (26-34); Mean Corpuscular Volume 91.4 fL (80-100); Monocytes Absolute Auto 500 /uL (0-900); Monocytes Percent Auto 6.8 % (3-14); Neutrophils Absolute Auto 4900 /uL (1500-7000); Neutrophils Percent Auto 64.8 % (50-75); Platelet Count 288 X10^3/uL (150-400); Red Blood Cell Count 3.62 X10^6/uL (4.0-5.2); Red Cell Distribution Width 14.3 % (11.6-14.8); White Blood Cell Count 7.5 X10^3/uL (4.5-11.0)
[2023-09-22] MEDS: LACTATED RINGERS 1,000 ML 100 ML IV (20:48)
[2023-09-22] MEDS: OXYTOCIN PREMIX 30 UNIT/500 ML PLAST..BAG IV (20:48)
[2023-09-22 21:04] VITALS: BP 94/52
[2023-09-22 21:11] VITALS: BP 94/52; PULSE 78; RESP 16; TEMP 36.4
--- NOTE | 2023-09-22 23:30 | PM.OBPNLAB ---
Date/Time Date Patient Seen: 09/23/23 Time Patient Seen: 23:15 Pain Control Pain control: tolerating well Comments: Stefanie feeling contractions, but still irregular. Didier and her parents at bedside. Pelvic Exam Dilation (cm): 3 Effacement (%): 75 station: -2 Amniotic membrane status: Intact Contractions Monitor mode: External Contraction frequency (min): 5 Contraction pattern: Irregular Contraction intensity: Strong/Firm Status status: Category ll Heart Rate Baseline: 145 Monitor Accelerations: Absent Monitor Decelerations: Absent Monitor Variability: Moderate Assessment and Plan Assessment: induction ongoing Comments: at 38w6d IOL for AMA GBS neg FHR Cat 1 Continue pitocin induction until baby in pelvis, then plan to AROM. Recheck in 2-3 hours.
--- NOTE | 2023-09-23 02:49 | PM.OBPNLAB ---
Date/Time Date Patient Seen: 09/23/23 Time Patient Seen: 02:20 Pain Control Pain control: tolerating well Comments: BP 111/71 HR 87 bpm SpO2 97% Pelvic Exam Dilation (cm): 3 Effacement (%): 80 station: -2 Amniotic membrane status: Intact Comments: AROM, light mec and obvious stool at 0242 Contractions Monitor mode: External Pitocin rate (mU/min): 5 (turned down to 2) Contraction frequency (min): 5 Contraction duration (min): 1 Contraction pattern: Irregular Contraction intensity: Strong/Firm Status status: Category ll Heart Rate Baseline: 150 Monitor Accelerations: Present Monitor Decelerations: Prolonged (x 2 min at 0154) Monitor Variability: Moderate Assessment and Plan Assessment: induction ongoing Comments: at 39w0d AROM, light mec GBS neg Rh pos AROM with copious fluid; vertex palpated continuosly during fluid loss to ensure still in pelvis Pitocin turned down to 2 Continuous monitoring Anticipate NSVB.
--- NOTE | 2023-09-23 05:01 | PM.OBPRVD ---
Events: Labor Induction (d/t AMA), Polyhydramnios (resolved by 37w5d) and Meconium Stained Fluid (light mec) Labor & Delivery Delivery date: 09/23/23 Intrapartal Events: Precipitous Labor < 3 hours and Deceleration (prolonged x 1) Cervical ripening method: none Induction method: per pitocin protocol Delivery augmentation: rupture of membranes Delivery monitor: external FHT Route of delivery: L&D Laceration Description: None Estimated blood loss (mL): 175 (unable to measure carefully due to large volume of amniotic fluid mixed with blood at delivery) Anesthesia Type: None Narrative: Labor progressed well after AROM. Pitocin turned down to 2 mu/min after AROM and then 1 mu/min prior to delivery. Stefanie started feeling pressure approx 0350 and used nitrous oxide and support of her father and partner during labor. Laurence did one small push, so CNM called RNs into room for delivery. With next contraction, head delivered with one push. After restitution, easy delivery of anterior shoulder followed by vigorous baby girl and a large amount of amniotic fluid with very thin meconium. Baby placed on maternal abdomen for welcoming and drying. Apgars 9/9. They remained skin to skin while cord was clamped twice by CNCody and cut by Didier approx 7 min after . Placenta delivered spontaneously with cord traction and maternal efforts and appeared to be intact. Cord blood collected per protocol. Pitocin, 350 mu/min started for AMTSL. Perineum inspected and found to be intact. Blood loss estimated loss is 175 mL. Mom and baby left stable and is being initiated. Laurence and Didier are thrilled to meet their baby girlConstanza. Merissa DUTTON, JUJUM, IBCLC Baby 1: Infant gender: Female Presentation: vertex Position: Right Occiput Anterior Placenta delivery description: Spontaneous Cord Vessel Description: 3 Vessels score (1 min): 8 score (5 min): 9 weight: 3.695 kg Plan for aftercare: Routine care
[2023-09-23] MEDS: KETOROLAC 30 MG/ML VIAL IV (05:53)
[2023-09-23] MEDS: LEVOTHYROXINE 75 MCG TABLET 150 MCG PO (07:25)
[2023-09-23] MEDS: LANOLIN OINT 7 GM 1 APPLIC TOP (08:48)
[2023-09-23] MEDS: METFORMIN HCL 500 MG TABLET PO (08:48)
[2023-09-23] MEDS: IBUPROFEN 600 MG TABLET PO ×2 (14:18→20:37)
[2023-09-23] MEDS: HYDROCODONE/ACET 5/325 TABLET 1 TAB PO (17:07)
[2023-09-23] MEDS: ACETAMINOPHEN 325 MG TABLET 650 MG PO (17:08)
[2023-09-24] MEDS: ACETAMINOPHEN 325 MG TABLET 650 MG PO ×2 (02:36→08:46)
[2023-09-24] MEDS: IBUPROFEN 600 MG TABLET PO ×2 (02:36→08:46)
[2023-09-24] MEDS: LEVOTHYROXINE 75 MCG TABLET 150 MCG PO (05:59)
[2023-09-24] MEDS: METFORMIN HCL 500 MG TABLET PO (08:45)
--- NOTE | 2023-09-24 09:48 | P.DS_ITS ---
Discharge Providers Provider Date of admission: 09/22/23 19:22 Discharge Date: 09/24/23 Consults: 09/22/23 20:19 Consult to Anesthesiology Urgent Comment: Consulting Provider: Anesthesiologist Reason for consultation: Epidural Has provider been notified: No 09/24/23 04:59 Consult to Flight Dynamicist Routine Comment: Discharge provider: Merissa Mccall CNM, ARNP Summary Hospital Course Date Patient Seen: 09/24/23 Time Patient Seen: 09:49 Diagnoses: O80 Peripartum Data Delivery Method: Natural Vaginal Laceration Description: None [place] 1: Gender: Female Disposition of : home Status at Discharge Cognitive/behavioral status at discharge: oriented and calm Functional status at discharge: independent ambulation Overall status at discharge: patient is progressing back to baseline Time Spent with Patient Time attestation: Total time spent providing and/or coordinating discharge services: Time spent: Less than 30 minutes Specific discharge activities: discharge teaching Objective Labs 09/22/23 20:10 Exam Other: Fundus firm at U, midline. Lochia scant Perineum intact with minimal edema Discharge Plan Discharge Plan Patient Disposition: Home Discharge orders & Medications Prescriptions: Continued levothyroxine 150 mcg tablet 150 mcg PO DAILY metformin 500 mg tablet 500 mg BID Patient Comments: take 1 tablet by mouth three times a day Follow up/Referrals: Merissa Mccall CNM, ARNP [[employer]] - Activity Restrictions/Additional Instructions: Low diaz x 2 weeks Diet/Activity/Treatments Diet: Diet as Tolerated and Regular Diet comment: increase fiber and fluid to support healing and stools Cold/Heat Therapy: as neeed Skin/Wound/Dressing Care Report to your healthcare provider any signs of infection, such as:: chills, fever, unusual drainage and unusual redness Visit Report/Discharge Packet Stand Alone Forms: Patient Portal/API, Stroke Signs & Symptoms
== END 2023-09-24 11:30 | disposition home or self-care (01) | DRG 807 ==
PROVIDERS: Admitting Provider Advanced Practice Midwife; Referring Provider Advanced Practice Midwife; Visit Provider Advanced Practice Midwife
DX: O76 Abnormality in fetal heart rate and rhythm complicating labor and delivery (principal); Z37.0 Single live birth; Z3A.38 38 weeks gestation of pregnancy
CPT/HCPCS: 36415; 59050; 85025; 86850; 86900; 86901; G0379; J1885; J2590